=== PATIENT | female | born 1990 | race Two or more races ===

== ENCOUNTER 2023-07-17 20:51 | Emergency (ER) | payer MEDICAID, OTHER ==
[~2023-07-17] VITALS: Ht 170.2 cm; Wt 90.3 kg
[2023-07-17] MEDS ORDERED: ZOFR4T PO (23:46)
[2023-07-17 23:50] VITALS: BP 125/76; PULSE 60; RESP 17; TEMP 98.6; O2SAT 97
== END 2023-07-17 23:51 | disposition home or self-care (01) ==
LOC: ER 20:51
DX: R51.9 Headache, unspecified (principal); R11.2 Nausea with vomiting, unspecified
CPT/HCPCS: 70450